=== PATIENT | female | born 1960 | race Caucasian/White ===

== ENCOUNTER 2018-10-04 06:59 | Emergency (ER) | payer BC ==
[2018-10-04] MEDS ORDERED: NS 500 ML IV ONE (07:22)
[2018-10-04] MEDS ORDERED: LORazepam 2 MG/ML INJ IVP ONE (07:23)
--- NOTE | 2018-10-04 07:28 | EDPHY ---
H & P Time Seen by Provider: 10/04/18 07:14 HPI/ROS: HPI Shortness of breath. Diarrhea. 58-year-old female by private vehicle with her daughter. They are visiting from [place]. This patient reports onset of shortness of breath last night. They are currently staying in a hotel. She states that she for got her prescription medications at home. These medications include levothyroxine and lorazepam. She takes lorazepam, 1 mg at night. She think she may just be anxious but she is not sure. She has a history of pulmonary embolism. She was treated for breast cancer about a year ago this included chemotherapy. She developed a pulmonary embolism during that time. She was on anticoagulation for period of time but has not been on any anticoagulants or had chemotherapy in about a year. She denies any calf pain, leg pain or swelling. She states that this shortness of breath feels different from her prior pulmonary embolism which she states was painful. She also describes having intermittent watery diarrhea since last night. She reports that she was diagnosed with influenza about a week ago but she reports that this illness has cleared. ROS: Constitutional: No fever, no chills. No weakness. Eyes: No discharge. No changes in vision. ENT: No sore throat. No nasal congestion or rhinorrhea. Respiratory: No cough. As above. Cardiac: No chest pain, no palpitations. Gastrointestinal: No abdominal pain, no vomiting, as above. Genitourinary: No hematuria. No dysuria or increased frequency with urination. Musculoskeletal: No back pain. No neck pain. No myalgias or arthralgias. Skin: No rashes. Neurological: No headache. No focal weakness or altered sensation. Past medical history: Hypothyroid, breast cancer, PE, DVT. Social history: Nonsmoker. No alcohol. Here with her daughter. They are visiting from [place]. Physical Exam: General Appearance: Alert, mildly anxious but not in distress. This patient is responding to questions appropriately and in full sentences. This patient appears well-hydrated and well-nourished. Eyes: Pupils equal and round no pallor or injection. No lid edema, erythema or injection. ENT, Mouth: Mucous membranes are moist. The pharyngeal tissues are unremarkable. No edema or swelling. No asymmetry suggestive of abscess. No erythema or exudates. Respiratory: There are no retractions, lungs are clear to auscultation with good air movement bilaterally. No wheezing. No rhonchi. Mildly tachypneic at 20-22. Cardiovascular: Regular rate and rhythm. No murmur. Gastrointestinal: Abdomen is soft and nontender, no masses, bowel sounds normal. No focal tenderness at McBurney's point. No Croft sign. Neurological: Motor sensory function is grossly intact. Cranial nerves are normal. Gait is normal. Skin: Warm and dry, no rashes. Musculoskeletal: Neck is supple and nontender. Extremities are symmetrical. All joints range without pain or impingement. Psychiatric: No agitation. No depression. Database: EKG: EKG time is 7:28 a.m.; EKG shows a narrow complex normal sinus rhythm with a ventricular rate of 62. The IN, QRS, QT intervals are within normal limits. There are no ST-T wave changes indicative of ischemic or injury pattern. No evidence of right heart strain. Interpreted by me. Imaging: Chest x-ray PA and lateral: The cardiac mediastinal silhouette is unremarkable. No evidence of infiltrate or pneumothorax. No acute pulmonary disease process noted. Interpreted by me. Procedures: Emergency department course: Triage vital signs reviewed. She is afebrile. She is mildly tachypneic and mildly hypertensive. Vital signs are otherwise normal. An IV was placed. She was placed on a cardiac cath lab radiology technologist. Room air pulse oximetry is currently 99%. EKG obtained and reviewed by myself. Chest x-ray will be obtained as well. The patient will be given 0.5 mg of IV Ativan for anxiety. 8:30 a.m., the patient was re-evaluated, she is resting comfortably at this time. She reports resolution of her symptoms and shortness of breath. She feels that this was just an anxiety attack brought on by not taking her Ativan last night. She states that she takes 1 mg orally before bed. Repeat pulmonary exam she is clear to auscultation bilaterally. No tachypnea. No wheezing. Room air pulse oximetry 95%. secured entrance monitor shows a narrow complex sinus rhythm with ventricular rate of 62. I discussed further observation in the emergency department. She does not want to do this. She is requesting discharge. She will return to [place] tomorrow. She is here visiting her daughter who goes to school at [employer] for parents weekend. I explained that I would provide her with a take-home pack of Ativan to bridge her until she gets home and has access to her prescription medications. Follow-up and return to emergency department precautions have been reviewed with her. All of her questions were answered. She was discharged from the emergency department in good condition with her daughter who is driving. We are waiting the result of her TSH which has been delayed and is pending. I will follow up on this and notify the patient of the results. Differential Diagnosis: The differential diagnosis on this patient includes but is not limited to anxiety reaction. Pneumothorax, pneumonia, CHF, acute coronary syndrome, pulmonary embolism unlikely. This represents a partial list of diagnoses considered. These considerations are based on history, physical exam, past history, reassessment and diagnostic testing. Smoking Status: Never smoked Constitutional: Initial Vital Signs Temperature (C) 36.6 C 10/04/18 07:04 Heart Rate 89 10/04/18 07:04 Respiratory Rate 24 H 10/04/18 07:04 Blood Pressure 146/83 H 10/04/18 07:04 O2 Sat (%) 99 10/04/18 07:04 O2 Delivery Mode Room Air Allergies/Adverse Reactions: No Known Allergies Allergy (Unverified 10/04/18 07:03) Home Medications: Medication Instructions Recorded Lorazepam 10/04/18 Synthroid 10/04/18 Medical Decision Making - Data Points Laboratory Results: Laboratory Results 10/04/18 07:30 10/04/18 07:30 Medications Given: Discontinued Medications Sodium Chloride (Ns) 500 mls @ 1,000 mls/hr IV EDNOW ONE PRN Reason: Protocol Stop: 10/04/18 07:51 Last Admin: 10/04/18 07:40 Dose: 500 mls Lorazepam (Ativan Injection) 0.5 mg IVP EDNOW ONE Stop: 10/04/18 07:24 Last Admin: 10/04/18 07:41 Dose: 0.5 mg Lorazepam (Ativan 1 Mg Prepack#4) 1 btl TAKEHOME EDNOW ONE Stop: 10/04/18 08:35 Last Admin: 10/04/18 08:46 Dose: 1 btl Point of Care Test Results: Chemistry 10/04/18 07:39 POC Troponin I 0.02 ng/mL ng/mL (0.00-0.08) Departure - Departure Disposition: Home, Routine, Self-Care Clinical Impression: Dyspnea, Anxiety, Hypothyroid Condition: Good Instructions: Lorazepam (By mouth), Dyspnea (ED), Anxiety (ED) Additional Instructions: Read and follow provided instructions. Follow-up with your primary care physician as needed when you return home to [place]. Ativan 1 mg tablets: You can take 1 orally at night prior to bed. Do not drive while on this medication. Return to the emergency department for worsening return of shortness of breath, lightheadedness or other serious concerns. Referrals: Patient,NotPresent [Unknown] - As per Instructions
[2018-10-04 07:42] LABS: PLATELET COUNT 237 10^3/uL (150-400)
[2018-10-04 07:54] LABS: INR 0.96 (0.83-1.16); PROTIME(PATIENT) 12.4 SEC (12.0-15.0)
[2018-10-04] MEDS ORDERED: LORAZEPAM 1 MG PREPACK#4 BTL TAKEHOME ONE (08:34)
[2018-10-04 08:44] VITALS: BP 141/77
--- NOTE | 2018-10-04 15:31 | CPEKG ---
Test Reason : OPEN Blood Pressure : / mmHG Vent. Rate : 062 BPM Atrial Rate : 061 BPM P-R Int : 146 ms QRS Dur : 082 ms QT Int : 427 ms P-R-T Axes : 071 069 054 degrees QTc Int : 434 ms Sinus rhythm Confirmed by Rois Cummings ([id number]) on 10/04/2018 3:30:44 PM Referred By: Rosi Cummings Confirmed By:Rosi Cummings
--- NOTE | 2018-10-08 12:20 | ASMTCMCOM ---
CM Note CM Note Notes: Follow up call to patient regarding elevated TSH level of eleven (11) on her ED visit 10/04/18. Patient states that she is back home in [place] and is scheduling a follow up appointment with her PCP (Levothyroxine prescriber) today. Patient also tells me that she was "off" her thyroid medication while visiting [place] and I assured her that this may explain her elevated TSH level. This CM asked patient to inform her PCP of the elevated level as well as how long she had been off her medication at the time it was drawn in the ED so as to determine further dosing. Patient verbalizes understanding. Date Signed: 10/08/2018 12:19 PM Electronically Signed By:Didi Gill RN
== END 2018-10-04 08:50 | disposition home or self-care (01) ==
DX: R06.09 Other forms of dyspnea (principal); R19.7 Diarrhea, unspecified; Z86.711 Personal history of pulmonary embolism; E03.9 Hypothyroidism, unspecified; Z85.3 Personal history of malignant neoplasm of breast; F41.9 Anxiety disorder, unspecified
CPT/HCPCS: 84484-ER; 96374; J2060